=== PATIENT | male | born 1955 | race Caucasian/White ===

== ENCOUNTER 2016-06-26 11:32 | Emergency (ER) | payer SELFPAY ==
[~2016-06-26] VITALS: Ht 172.7 cm; Wt 104.3 kg
[2016-06-26 11:43] VITALS: BP 158/96
[2016-06-26] MEDS ORDERED: GLUCOPHAGE1000 MG PO (11:47)
--- NOTE | 2016-06-26 11:54 | NUR ---
PT AMBULATED TO BED 4 AT THIS TIME.
--- NOTE | 2016-06-26 11:55 | NUR ---
60M BIB GF C/O RT SIDED FACIAL SWELLING X TODAY; PT STATES " I WAS CLEANING THE INTERIOR OF MY CAR AND FELT LIKE SOMETHING WAS BITING MY FACE. I THOUGHT IT WAS JUST SWEAT, SO I JUST WIPED IT OFF. I WOKE UP THIS MORNING, WASHED MY FACE, AND IT WAS LIKE THIS"; PT DENIES PAIN TO SITE AT THIS TIME; A&OX4, BL LUNG SOUNDS CLEAR, RR EVEN/UNLABORED, SKIN IS WARM/DRY/INTACT AT THIS TIME; PT DENIES N/V/D AT THIS TIME; STEADY GAIT; PT RESTING IN BED W/ HOB ELEVATED AND IN LOWEST POSITION; POSITIONED FOR COMFORT; GF AT BEDSIDE; ER MD MADE AWARE OF STATUS. WILL CONTINUE TO MONITOR.
--- NOTE | 2016-06-26 12:30 | NUR ---
ER MD DR. BEAVER EVALUATING PT AT BEDSIDE.
[2016-06-26 12:46] VITALS: BP 158/98
--- NOTE | 2016-06-26 12:46 | NUR ---
Patient discharged with v/s stable. Written and verbal after care instructions given and explained. Patient alert, oriented and verbalized understanding of instructions. Ambulatory with steady gait. All questions addressed prior to discharge. ID band removed. Patient advised to follow up with PMD. Rx of PENICILLIN VK 500MG TAB given. Patient educated on indication of medication including possible reaction and side effects. Opportunity to ask questions provided and answered.
== END 2016-06-26 12:46 | disposition home or self-care (01) ==
LOC: MED 11:32
DX: K02.9 Dental caries, unspecified (principal); R22.0 Localized swelling, mass and lump, head; E11.9 Type 2 diabetes mellitus without complications; I10 Essential (primary) hypertension